=== PATIENT | female | born 1970 | race Caucasian/White ===

== ENCOUNTER 2018-01-13 10:38 | Emergency (ER) | payer OTHER ==
[~2018-01-13] VITALS: Ht 175.3 cm; Wt 61.5 kg
[2018-01-13 11:04] VITALS: BP 158/99; PULSE 109; RESP 17; TEMP 97.9; O2SAT 97
[2018-01-13 11:38] LABS: BACTERIA, URINE RARE /hpf; BILIRUBIN, URINE NEG (NEG); BLOOD, URINE NEG (NEG); GLUCOSE,URINE NEG (NEG); HYALINE CAST, URINE 1 /lpf (RARE); KETONE, URINE NEG (NEG); MUCUS URINE MOD /lpf (OCC); NITRITE,URINE NEG (NEG); SQUAMOUS EPITHELIAL CELL URINE 1 /hpf (0-5); URINE COLOR YELLOW (YELLW/STRAW); URINE LEUKOCYTE ESTERASE NEG (NEG)
[2018-01-13 11:39] LABS: AUTOMATED NEUTROPHIL # 5.7 TH/MM3 (1.8-7.7); BASOPHIL # 0.1 TH/MM3 (0-0.2); BASOPHIL % 0.9 % (0.0-2.0); EOSINOPHIL # 0.3 TH/MM3 (0-0.4); EOSINOPHIL % 3.6 % (0.0-4.0); HEMATOCRIT 45.1 % (35.0-46.0); HEMOGLOBIN 15.4 GM/DL (11.6-15.3); LYMPH % 24.1 % (9.0-44.0); LYMPHOCYTE # 2.1 TH/MM3 (1.0-4.8); MEAN CORPUSCULAR HEMOGLOBIN 31.4 PG (27.0-34.0); MEAN CORPUSCULAR HGB CONC 34.1 % (32.0-36.0); MEAN PLATELET VOLUME 6.8 FL (7.0-11.0); MONO % 7.4 % (0.0-8.0); MONOCYTE # 0.7 TH/MM3 (0-0.9); PLATELET COUNT 439 TH/MM3 (150-450); RED CELL DISTRIBUTION WIDTH 14.1 % (11.6-17.2); WHITE BLOOD COUNT 8.9 TH/MM3 (4.0-11.0)
[2018-01-13 11:52] LABS: ALBUMIN 3.6 GM/DL (3.4-5.0); ALT (GPT) 15 U/L (10-53); AST (GOT) 9 U/L (15-37); BICARBONATE 27.6 MEQ/L (21.0-32.0); BLOOD UREA NITROGEN 7 MG/DL (7-18); CALCIUM 8.3 MG/DL (8.5-10.1); CHLORIDE 107 MEQ/L (98-107); CREATININE 0.85 MG/DL (0.50-1.00); GLOMERULAR FILTRATION RATE 71 ML/MIN (>89); GLUCOSE,RANDOM 92 MG/DL (74-106); SODIUM (NA) 139 MEQ/L (136-145)
[2018-01-13 11:55] LABS: ALKALINE PHOSPHATASE 41 U/L (45-117); TOTAL BILIRUBIN ADULT 0.5 MG/DL (0.2-1.0); TOTAL PROTEIN 6.6 GM/DL (6.4-8.2)
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
[2018-01-13 13:19] LABS: FREE T3 2.21 PG/ML (2.18-3.98); FREE T4 0.92 NG/DL (0.76-1.46)
[2018-01-13 15:24] VITALS: BP 165/101; PULSE 84; RESP 18; O2SAT 98
[2018-01-13] MEDS ORDERED: LORazepam 1 MG TAB PO ONE (18:30)
[2018-01-13 18:39] VITALS: BP 162/102; PULSE 86; RESP 16; TEMP 98.6; O2SAT 95
[2018-01-13 20:26] VITALS: BP 138/80
[2018-01-13 23:07] VITALS: BP 129/82; PULSE 80; RESP 17; TEMP 98.1; O2SAT 100
[2018-01-14 02:47] VITALS: BP 143/88; PULSE 64; RESP 17; TEMP 98.2; O2SAT 98
[2018-01-14 06:38] VITALS: BP 142/92; PULSE 86; RESP 16; TEMP 98.1; O2SAT 98
--- NOTE | 2018-01-14 10:31 | PD ---
History of Present Illness Chief Complaint: Adjustment disorder Time Seen by Provider: 10:03 Travel History International Travel<30 Days: No Contact w/Intl Traveler<30days: No Known affected area: No Legal Status Legal Status: Voluntary History of Present Illness: Reviewed electronic medical record, labs, discussed patient with staff. 47-year -old single, white female presents voluntarily to the emergency department with complaints of anxiety, PTSD, and depression. Patient evaluated in her room and J pod. Patient disheveled. Speech is clear, logical, and organized. She reports that she has been having intermittent suicidal thoughts however denies having them at this time. She denies homicidal ideation, and visual hallucinations. She does report hearing derogatory voices. Patient states that she used meth approximately 3 days ago. She reports that she drinks to 25 pounds [place] read as per night and reports having difficulty sleeping at night. She states that her appetite is been up and down. He reports an attempted overdose in 2013. She is not being followed up outpatient at this time and reports that she is noncompliant with her meds at this time as well. On this provider advised patient that she would be best served by following up at [facility] outpatient, she became tearful and began requesting prescriptions for Ativan. When told that she would not be receiving a prescription for Ativan she became irritable, and stated "this is what happens, you asked for help and nobody will help you ". [facility] Past Medical History Narrative Medical Medically cleared by ED staff. Psychiatric History Psychiatric History Patient reports a history of PTSD and dissociative disorder, as well as previous inpatient hospitalizations. This is her first visit to this facility, so no corroboration exists at this point. She states that she does not follow up outpatient and is not currently taking any medications. She reports an attempted overdose in 2013. Hx Psychiatric Treatment: HX OF PTSD AND DISSOCIATIVE D/O. WAS HOSPITALIZED ONCE FOR A SUICIDE ATTEMPT History of Inpatient Treatment: Yes Guns or firearms in home: No Social History Hx Alcohol Use: Yes Hx Tobacco Use: Yes Hx Substance Use: Yes Substance Use Type: Alcohol, Marijuana, Amphetamines-Stimulants Other Substances Used: LAST USE OF METH WAS 4 DAYS AGO Hx of Substance Use Treatment: No Family Psychiatric History Denies familial suicide attempts. Reports that her grandmother is diagnosed with late onset schizophrenia. Allergies-Medications (Allergen,Severity, Reaction): Coded Allergies: No Known Allergies (Unverified , 01/13/18) Reported Meds & Prescriptions Reported Meds & Active Scripts Active No Active Prescriptions or Reported Medications Mental Status Examination Appearance: Disheveled Consciousness: Alert Orientation: x4 Motor Activity: Normal gait Speech: Unremarkable Language: Adequate Fund of Knowledge: Inadequate Attention and Concentration: Adequate Memory: Unremarkable Mood: Anxious, Irritable Affect: Irritable, Anxious Thought Process & Associations: Intact, Logical, Goal directed (Med seeking) Thought Content: Appropriate Hallucination Type: Auditory (Reports auditory hallucinations of a derogatory nature) Delusion Type: None Suicidal Ideation: No (Denies at this time) Suicidal Plan: No Suicidal Intention: No Homicidal Ideation: No Homicidal Plan: No Homicidal Intention: No Insight: Fair Judgment: Adequate [facility] Medical Decision Making Medical Record Reviewed: Yes Assessment/Plan 47-year-old single, white female presents voluntarily to the emergency department with complaints of anxiety, depression, and PTSD. Patient is previously unknown to this facility, but reports that she has lived in that [facility] her whole life. She claims to have had multiple inpatient admissions at other facilities. She states that she was treated by an outpatient psychiatrist for several years and then her primary care physician continue to prescribe her medications. She reports that she "lost her doctor" but is vague as to the reason why. During this evaluation patient denied feeling suicidal at this time. She does claim to have auditory hallucinations, however she is unable to relay exactly what she hears. Her description is very vague in suspect. While she reports difficulty sleeping, she also reports recent use of amphetamines, and daily alcohol intake. When presented with the plan of establishing outpatient with [facility] the patient requested a prescription for Ativan. When advised she would not receive this prescription , she became irritable and began addressing his provider down stating, "this is what happens when you ask for help, nobody helps". Patient's actions are manipulative and she appears to be medication seeking. Patient will be discharged with a community resource packet, and [facility]. Orders Orders Complete Blood Count With Diff (01/13/18 11:09) Comprehensive Metabolic Panel (01/13/18 11:09) Urinalysis - C+S If Indicated (01/13/18 11:09) Psych Screen (01/13/18 11:09) Thyroid Stimulating Hormone (01/13/18 12:27) Free T3 (01/13/18 12:27) Free Thyroxine (T4) (01/13/18 12:27) Lorazepam (Ativan) (01/13/18 18:30) Diet Regular Basic (01/14/18 Breakfast) Results Vital Signs Date Time Temp Pulse Resp B/P (MAP) Pulse Ox O2 Delivery O2 Flow Rate FiO2 01/14/18 06:38 98.1 86 16 142/92 (109) 98 Room Air 01/14/18 02:47 98.2 64 17 143/88 (106) 98 Room Air 01/13/18 23:07 98.1 80 17 129/82 (98) 100 Room Air 01/13/18 20:26 138/80 (99) 01/13/18 18:39 98.6 86 16 162/102 (122) 95 Room Air 01/13/18 15:24 84 18 165/101 (122) 98 Room Air 01/13/18 11:04 97.9 109 17 158/99 (118) 97 Laboratory Tests Test 01/13/18 11:15 White Blood Count 8.9 Red Blood Count 4.90 Hemoglobin 15.4 Hematocrit 45.1 Mean Corpuscular Volume 92.0 Mean Corpuscular Hemoglobin 31.4 Mean Corpuscular Hemoglobin Concent 34.1 Red Cell Distribution Width 14.1 Platelet Count 439 Mean Platelet Volume 6.8 Neutrophils (%) (Auto) 64.0 Lymphocytes (%) (Auto) 24.1 Monocytes (%) (Auto) 7.4 Eosinophils (%) (Auto) 3.6 Basophils (%) (Auto) 0.9 Neutrophils # (Auto) 5.7 Lymphocytes # (Auto) 2.1 Monocytes # (Auto) 0.7 Eosinophils # (Auto) 0.3 Basophils # (Auto) 0.1 CBC Comment DIFF FINAL Differential Comment Urine Color YELLOW Urine Turbidity CLEAR Urine pH 6.0 Urine Specific [place] 1.012 Urine Protein NEG Urine Glucose (UA) NEG Urine Ketones NEG Urine Occult Blood NEG Urine Nitrite NEG Urine Bilirubin NEG Urine Urobilinogen LESS THAN 2.0 Urine Leukocyte Esterase NEG Urine WBC 1 Urine Squamous Epithelial Cells 1 Urine Bacteria RARE Urine Hyaline Casts 1 Urine Mucus MOD Microscopic Urinalysis Comment CULT NOT INDICATED Blood Urea Nitrogen 7 Creatinine 0.85 Random Glucose 92 Total Protein 6.6 Albumin 3.6 Calcium Level 8.3 Alkaline Phosphatase 41 Aspartate Amino Transf (AST/SGOT) 9 Alanine Aminotransferase (ALT/SGPT) 15 Total Bilirubin 0.5 Sodium Level 139 Potassium Level 3.7 Chloride Level 107 Carbon Dioxide Level 27.6 Anion Gap 4 Estimat Glomerular Filtration Rate 71 Free Thyroxine 0.92 Free Triiodothyronine (T3) pg/dL 2.21 Thyroid Stimulating Hormone 3rd Gen 1.220 Diagnosis Primary Impression: Adjustment disorder Psychiatrically Cleared: Yes Departure Forms: Tests/Procedures Patient Instructions: General Instructions Prescriptions No Active Prescriptions or Reported Meds Condition: Stable Eleonora King Jan 14, 2018 10:31
--- NOTE | 2018-01-14 10:37 | PD ---
Physical Exam Date Seen by Provider: Jan 14, 2018 Time Seen by Provider: 10:36 Narrative 47-year-old female previously medically cleared for psychiatric evaluation, was seen by psychiatric staff and deemed psychiatrically stable for discharge. Please see psychiatric note for follow-up plan. Data Data Last Documented VS Vital Signs Date Time Temp Pulse Resp B/P (MAP) Pulse Ox O2 Delivery O2 Flow Rate FiO2 01/14/18 06:38 98.1 86 16 142/92 (109) 98 Room Air Orders Orders Complete Blood Count With Diff (01/13/18 11:09) Comprehensive Metabolic Panel (01/13/18 11:09) Urinalysis - C+S If Indicated (01/13/18 11:09) Psych Screen (01/13/18 11:09) Thyroid Stimulating Hormone (01/13/18 12:27) Free T3 (01/13/18 12:27) Free Thyroxine (T4) (01/13/18 12:27) Lorazepam (Ativan) (01/13/18 18:30) Diet Regular Basic (01/14/18 Breakfast) Labs Laboratory Tests Test 01/13/18 11:15 White Blood Count 8.9 TH/MM3 Red Blood Count 4.90 MIL/MM3 Hemoglobin 15.4 GM/DL Hematocrit 45.1 % Mean Corpuscular Volume 92.0 FL Mean Corpuscular Hemoglobin 31.4 PG Mean Corpuscular Hemoglobin Concent 34.1 % Red Cell Distribution Width 14.1 % Platelet Count 439 TH/MM3 Mean Platelet Volume 6.8 FL Neutrophils (%) (Auto) 64.0 % Lymphocytes (%) (Auto) 24.1 % Monocytes (%) (Auto) 7.4 % Eosinophils (%) (Auto) 3.6 % Basophils (%) (Auto) 0.9 % Neutrophils # (Auto) 5.7 TH/MM3 Lymphocytes # (Auto) 2.1 TH/MM3 Monocytes # (Auto) 0.7 TH/MM3 Eosinophils # (Auto) 0.3 TH/MM3 Basophils # (Auto) 0.1 TH/MM3 CBC Comment DIFF FINAL Differential Comment Urine Color YELLOW Urine Turbidity CLEAR Urine pH 6.0 Urine Specific [place] 1.012 Urine Protein NEG mg/dL Urine Glucose (UA) NEG mg/dL Urine Ketones NEG mg/dL Urine Occult Blood NEG Urine Nitrite NEG Urine Bilirubin NEG Urine Urobilinogen LESS THAN 2.0 MG/DL Urine Leukocyte Esterase NEG Urine WBC 1 /hpf Urine Squamous Epithelial Cells 1 /hpf Urine Bacteria RARE /hpf Urine Hyaline Casts 1 /lpf Urine Mucus MOD /lpf Microscopic Urinalysis Comment CULT NOT INDICATED Blood Urea Nitrogen 7 MG/DL Creatinine 0.85 MG/DL Random Glucose 92 MG/DL Total Protein 6.6 GM/DL Albumin 3.6 GM/DL Calcium Level 8.3 MG/DL Alkaline Phosphatase 41 U/L Aspartate Amino Transf (AST/SGOT) 9 U/L Alanine Aminotransferase (ALT/SGPT) 15 U/L Total Bilirubin 0.5 MG/DL Sodium Level 139 MEQ/L Potassium Level 3.7 MEQ/L Chloride Level 107 MEQ/L Carbon Dioxide Level 27.6 MEQ/L Anion Gap 4 MEQ/L Estimat Glomerular Filtration Rate 71 ML/MIN Free Thyroxine 0.92 NG/DL Free Triiodothyronine (T3) pg/dL 2.21 PG/ML Thyroid Stimulating Hormone 3rd Gen 1.220 uIU/ML [facility] Medical Record Reviewed: Yes Supervised Visit with BELLA: Yes Diagnosis Primary Impression: Adjustment disorder Qualified Codes: F43.20 - Adjustment disorder, unspecified Patient Instructions: General Instructions Departure Forms: Tests/Procedures Scripts No Active Prescriptions or Reported Meds Disposition: DISCHARGE HOME Condition: Stable Anton Kuhn Jan 14, 2018 10:37
== END 2018-01-14 11:27 | disposition home or self-care (01) ==
LOC: NEPD 10:38 → NEPJ 01-14 11:27
DX: F43.20 Adjustment disorder, unspecified (principal); F43.9 Reaction to severe stress, unspecified; F43.10 Post-traumatic stress disorder, unspecified; Z72.0 Tobacco use
CPT/HCPCS: 80053; 81001; 84439; 84443; 84481; 85025; 99283